=== PATIENT | male | born 1955 | race Caucasian/White ===

== ENCOUNTER 2023-05-27 14:53 | Outpatient (AMB) | payer MEDICARE, SELFPAY ==
--- NOTE | 2023-05-27 15:38 | MHC.OFFWIV ---
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 He fell 2 days ago and now has bruising to the right lower leg Denies pain, ambulating at baseline Patient states he went to the gym today but then was told by family he should have his leg examined so he came here Patient denies use of blood thinners but is currently taking meloxicam daily for arthritis though he says it does not give him any relief He tripped and fell walking into his house, denies syncope, chest pain, shortness of breath, weakness, dizziness Review of Systems Const All systems reviewed & are unremarkable except as noted in HPI and below Physical Exam Vital Signs: Last Vital Signs Temp 99 F 05/27/23 15:43 Pulse 68 05/27/23 15:43 BP 140/72 H 05/27/23 15:43 Pulse Ox 97 05/27/23 15:43 Oxygen Delivery Method Room Air 05/27/23 15:43 General: awake, alert, oriented. Answers questions appropriately. Fully engaged in examination. Skin: warm, dry, intact HEENT: Normocephalic. Hearing intact. Cardiac: External chest normal in appearance. Respiratory: No cough, audible wheezing or stridor. Abdomen: without gross distension. MS: No deformities. Bruising noted to right lower leg from mid tib-fib to ankle anteriorly. Nontender to palpation. Full range of motion. Distal pulses intact. 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 Neurological: Oriented to person, place, time and situation. Thought process intact. Psychiatric: Appropriate mood and affect. Good judgment and insight. Assessment & Plan Assessment & Plan (1) Contusion: Code(s): T14.8XXA - Other injury of unspecified body region, initial encounter Plan Rest, ice, elevate right lower extremity Hold meloxicam for next 1 week Activity as tolerated All questions and concerns were answered, patient agrees with the plan Follow-up with primary care doctor or return to walk-in for any new or worsening symptoms Coding Level of Care Code Est Pt Level 3 (68900) Diagnoses Contusion T14.8XXA
[2023-05-27 15:43] VITALS: BP 140/72; PULSE 68; TEMP 37.2; O2SAT 97
== END 2023-05-27 16:32 | disposition home or self-care (01) ==
PROVIDERS: PCP Internal Medicine; Visit Provider Registered Nurse Emergency
DX: T14.8XXA Other injury of unspecified body region, initial encounter (principal)
CPT/HCPCS: 99213

== ENCOUNTER 2023-06-05 10:43 | Outpatient (AMB) | payer MEDICARE, SELFPAY ==
--- NOTE | 2023-06-05 11:08 | AM.OFFWIN_ITS ---
Intake Vital Signs 06/05/23 11:09 Height 5 ft 9 in Weight 280 lb BMI 41.3 BP 130/90 H Blood Pressure Location Lt brachial Position Sitting Pulse 75 Pulse Source Pulse Oximeter Temp 97.9 F Temp Source Temporal Artery Scan Pulse Oximetry (%) 96 Oxygen Delivery Method Room Air Intake Visit Reasons: EP RT lesion possible infection Intake Note: pt is here today for rt lesion possible infection started 2 days ago Patient Tobacco Use Status: Never used Tobacco Allergies No Known Allergies Allergy (Verified 06/05/23 12:06) Medication List - Last Reconciled 06/05/23 by Jayro Menchaca MD atorvastatin 80 mg PO DAILY carvedilol 25 mg PO BID cephalexin 500 mg PO BID 7 days cholecalciferol (vitamin D3) 50 mcg PO DAILY cyanocobalamin (vitamin B-12) 1,000 mcg PO DAILY hydralazine 50 mg PO TID magnesium 200 mg PO DAILY meloxicam 7.5 mg PO DAILY montelukast 10 mg PO DAILY spironolactone 100 mg PO DAILY tamsulosin 0.4 mg PO DAILY valsartan 320 mg PO DAILY verapamil ER mg PO Do you need a note to return to daycare/school/sports/work: No HPI EP RT lesion possible infection HPI Details 67-year-old male presents to the office for a sick visit. Patient was seen on May 26 for a contusion injury on the right leg. Patient reports that his leg congestion symptoms have worsened. There is a weeping wound in the leg. He is flying to [place] this weekend. No chills or rigors. PFSH Social History Patient Tobacco Use Status: Never used Tobacco Physical Exam Vital Signs: Last Vital Signs Temp 97.9 F 06/05/23 11:09 Pulse 75 06/05/23 11:09 BP 130/90 H 06/05/23 11:09 Pulse Ox 96 06/05/23 11:09 Oxygen Delivery Method Room Air 06/05/23 11:09 BMI result Body Mass Index 41.3 Extrem Other: Right leg: Congested, swollen and mildly tender to touch. Fluctuant swelling in the center of the rash. Office Procedures I&D Drain Details: Fluctuant area was cleaned with Betadine. Most dependent part, area infiltrated with 2% xylocaine. Using an 18 gauge needle the skin was pierced. Most of the aspirate was blood 68416-Motjgbja of Skin Abscess, simple All charges added?: Additional procedure code (CPT) needed Assessment & Plan Assessment & Plan (1) Contusion: Code(s): T14.8XXA - Other injury of unspecified body region, initial encounter Plan: Hematoma was drained. Abx started for empirical coverage for skin infection. Pt was instructed to return for a recheck on Saturday. Orders: Orders AMB Incision & Drainage Today T14.8XXA - Other injury of unspecified body region, initial encounter Jayro Menchaca MD Medications: New cephalexin 500 mg PO BID 7 days 14 caps 0RF L02.91 - Cutaneous abscess, uns pecified Lyndsey Jeffers NP Coding Level of Care Code Est Pt Level 3 (26345) Diagnoses Contusion T14.8XXA CPT Codes I&D Drain - Drain 1: 52756-Zgddoumx of Skin Abscess, simple ([id number])
[2023-06-05 11:09] VITALS: BP 130/90; PULSE 75; TEMP 36.6; O2SAT 96; BMI 41.3
== END 2023-06-05 14:53 | disposition home or self-care (01) ==
PROVIDERS: PCP Internal Medicine; Visit Provider Internal Medicine
DX: S80.11XA Contusion of right lower leg, initial encounter (principal)
CPT/HCPCS: 10060; 99213

== ENCOUNTER 2023-06-07 11:04 | Outpatient (AMB) | payer MEDICARE, SELFPAY ==
--- NOTE | 2023-06-07 11:21 | MHC.OFFWIV ---
Intake Vital Signs 06/07/23 11:23 Weight 280 lb BP 130/90 H Blood Pressure Location Lt brachial Position Sitting Pulse 76 Pulse Source Pulse Oximeter Pulse Oximetry (%) 97 Oxygen Delivery Method Room Air Intake Visit Reasons: EP dressing removal RT leg (lobby) Patient Tobacco Use Status: Never used Tobacco Allergies No Known Allergies Allergy (Verified 06/07/23 11:23) Do you need a note to return to daycare/school/sports/work: No HPI HPI Comments History of Present Illness Details 67 male patient who presents to walk in clinic for dressing change. Pt was seen Wed by Dr. Menchaca for I&D of Abscess right lower leg. Pt currently takes Keflex as prescribed. PFSH Social History Patient Tobacco Use Status: Never used Tobacco Review of Systems Const All systems reviewed & are unremarkable except as noted in HPI and below Physical Exam Vital Signs: Last Vital Signs Pulse 76 06/07/23 11:23 BP 130/90 H 06/07/23 11:23 Pulse Ox 97 06/07/23 11:23 Oxygen Delivery Method Room Air 06/07/23 11:23 Const General: comfortable and no acute distress Orientation/consciousness: patient oriented x3 Skin General skin exam: erythema, eschar and fluctuance Wounds: wounds noted (right lower leg) Neuro General: patient oriented x3 and gait normal Psych Speech and movement: Normal speech and movement present Assessment & Plan Assessment & Plan (1) Dressing change or removal, nonsurgical wound: Code(s): Z48.00 - Encounter for change or removal of nonsurgical wound dressing Plan: - Removed the Old dressing. - Wound was cleaned and new dressings applied (Xeroform, 4x4 sponges, Kerlix wrap and Coban bandage). Coding Level of Care Code Est Pt Level 3 (62172) Diagnoses Dressing change or removal, nonsurgical wound Z48.00 Time Spent (min) 15
[2023-06-07 11:23] VITALS: BP 130/90; PULSE 76; O2SAT 97
== END 2023-06-07 12:47 | disposition home or self-care (01) ==
PROVIDERS: PCP Internal Medicine; Visit Provider Nurse Practitioner Family
DX: Z48.00 Encounter for change or removal of nonsurgical wound dressing (principal)
CPT/HCPCS: 99024

== ENCOUNTER 2024-12-03 10:13 | Outpatient (AMB) | payer MEDICARE, SELFPAY ==
[2024-12-03 10:18] VITALS: BP 112/60; PULSE 66; TEMP 36.6; O2SAT 97; BMI 41.8
--- NOTE | 2024-12-03 10:18 | AM.OFFWIN_ITS ---
Intake Vital Signs 12/03/24 10:18 Height 5 ft 9 in Weight 283 lb BMI 41.8 BP 112/60 Blood Pressure Location Lt brachial Position Sitting Pulse 66 Pulse Source Pulse Oximeter Temp 97.9 F Temp Source Oral Pulse Oximetry (%) 97 Oxygen Delivery Method Room Air Intake Visit Reasons: EP bug bite on back Intake Note: pt presents with irritated lesion on right mid lower back- red, swollen, painful Patient Tobacco Use Status: Never used Tobacco Allergies No Known Allergies Allergy (Verified 12/03/24 10:19) Do you need a note to return to daycare/school/sports/work: No HPI HPI Comments History of Present Illness Details History of Present Illness - The patient is a 69-year-old male pres enting with a skin lesion on the back. - The lesion was first noticed yesterday at the gym and has worsened since then. - The patient reports pain and fatigue b ut denies fever. - There was drainage from the lesion thi s morning. - He thinks that he was bitten by a bug. - The patient has a pending prescription for amoxicillin for dental work, which has not been collected yet. - He denies fever, chills, discharge, bl eeding, joint pain, or other lesions. Physical Exam General: Cooperative, healthy appearing, comfortable, no acute distress and well developed Orientation: Patient oriented x3 Respiratory: Normal respiratory effort and able to speak in complete sentences. Clear to auscultation bilaterally Cardiovascular: Regular rate and rhythm. Normal S1 and S2 Skin: Small open crusted dry single non-tender raised lesion on the lower back on the left with surrounding erythema and no induration. No discharge noted. No fluctuance noted. Patient was informed and verbally consented to the use of an ambient scribe for clinic note documentation during this visit. [facility] Social History Patient Tobacco Use Status: Never used Tobacco Review of Systems Const All systems reviewed & are unremarkable except as noted in HPI and below Physical Exam Vital Signs: Last Vital Signs Temp 97.9 F 12/03/24 10:18 Pulse 66 12/03/24 10:18 BP 112/60 12/03/24 10:18 Pulse Ox 97 12/03/24 10:18 Oxygen Delivery Method Room Air 12/03/24 10:18 BMI result Body Mass Index 41.8 Assessment & Plan Assessment & Plan (1) Bug bite with infection: Code(s): W57.XXXA - Bitten or stung by nonvenomous insect and other nonvenomous arthropods, initial encounter Qualifiers: Encounter type: initial encounter Qualified Code(s): W57.XXXA - Bitten or stung by nonvenomous insect and other nonvenomous arthropods, initial encounter Plan Most likely cellulitis vs abscess after an insect bite plan - Prescribed antibiotic cream and oral antibiotics for infection management. - Recommended Tylenol or Motrin for pain relief. - Advised to monitor the lesion and report any worsening symptoms. - Instructed to observe for any signs of worsening or complications. Medications: New doxycycline hyclate 100 mg PO BID 14 tabs 0RF mupirocin 2% 1 appl topical TID 22 grams 0RF Coding Level of Care Code Est Pt Level 3 (06433) Diagnoses Bug bite with infection, initial encounter W57.XXXA Encounter type: initial encounter
--- OUTSIDE RECORDS SUMMARY | 2024-12-03 12:12 | XMS_ITS | Encounter Summary ---
Author Organization [facility] Address [address] [place] [id number] Phone Care Team Providers Care Machine Container Washer Name Role Phone Unknown, Unknown Primary Care Provider Johnathan Decker MD Unavailable [phone] Reason for Referral * Outpatient Procedure - Closed Specialty Diagnoses / Procedures Referred By Lazaro lopez Referred To Contact Radiology Diagnoses TIA (transient ischemic attack) Procedures US Carotid Duplex Complete (Bilateral) Klaus Peña MD [address] [place] [address], [address] [place] [id number] Phone: tel: fax: [email or web address]:[email or web address] Referral ID Status Reason Start Date Expiration Date Visits Re quested Visits Authorized [id number] Closed 08/22/2023 08/21/2024 1 1 Encounter Details Date Type Department Care Team (Latest Contact Info) Description 08/22/2023 Transcribe Orders Virtual Department [address], [place] [phone] Klaus Peña MD [address] [place] [address], [address] [place] [address] [phone] [email or web address] TIA (transient ischemic attack) (Primary Dx) Social History Tobacco Use Types Packs/Day Years Used Date Smoking Tobacco: Never Assessed Sex and Gender Information Value Date Recorded Sex Assigned at Male 09/03/2023 11:46 AM EDT Legal Sex Male 4:18 PM EDT Gender Identity Male 09/03/2023 11:46 AM EDT Sexual Orientation Straight 09/03/2023 11 :46 AM EDT documented as of this encounter Plan of Treatment Not on file documented as of this encounter Results * US Carotid Duplex Complete (Bilateral) (09/04/2023 3:40 PM EDT) Anatomical Region Laterality Modality Heart, Thoracic Vasculature, Neck Ultrasound 09/09/2023 3:59 PM EDT Impressions 09/09/2023 4:03 PM EDT Atherosclerotic changes bilaterally. No evidence of hemodynamically significant cervical common carotid or proximal ICA stenosis. Narrative 09/09/2023 4:03 PM EDT US CAROTID DUPLEX COMPLETE (BILATERAL) HISTORY: TIA. TECHNIQUE: Ultrasound Carotid Duplex with color flow Doppler and spectral waveform Doppler. Arterial inflow was assessed. COMPARISON: No relevant cervical/carotid imaging available. FINDINGS: Mild atherosclerotic mural thickening affects the carotid bulb bilaterally, minimal effect upon the lumen. Right Common carotid artery: No discernible flow limiting stenosis throughout the cervical carotid artery. Internal carotid artery: There is no evidence of flow-limiting stenosis following standard velocity criteria. Peak systolic over end diastolic velocities within the distal common carotid artery and proximal ICA are 98/17 and 57/16 cm/s. ICA to CCA peak systolic velocity ratio is 0.58. External carotid artery: No flow limiting stenosis. Vertebral artery: Normal velocity, antegrade flow: 39/12 cm/s. Left Common carotid artery: No discernible flow limiting stenosis throughout the cervical carotid artery. Internal carotid artery: No evidence of flow-limiting stenosis by velocity criteria or suggested on color flow imaging. Peak systolic over end diastolic velocities within the distal common carotid artery and proximal ICA are 61/9 and 49/11 cm/s. ICA to CCA peak systolic velocity ratio is 0.80. External carotid artery: No significant stenosis. Vertebral artery: Normal velocity, antegrade flow: 53/13 cm/s. Procedure Note Stewart Lezama MD - 09/09/2023 US CAROTID DUPLEX COMPLETE (BILATERAL) HISTORY: TIA. TECHNIQUE: Ultrasound Carotid Duplex with color flow Doppler and spectralwaveform Doppler. Arterial inflow was assessed. COMPARISON: No relevant cervical/carotid imaging available. FINDINGS: Mild atherosclerotic mural thickening affects the carotid bulbbilaterally, minimal effect upon the lumen. Right Common carotid artery: No discernible flow limiting stenosis throughoutthe cervical carotid artery. Internal carotid artery: There is no evidence of flow-limiting stenosisfollowing standard velocity criteria. Peak systolic over end diastolicvelocities within the distal common carotid artery and proximal ICA are98/17 and 57/16 cm/s. ICA to CCA peak systolic velocity ratio is 0.58. External carotid artery: No flow limiting stenosis. Vertebral artery: Normal velocity, antegrade flow: 39/12 cm/s. Left Common carotid artery: No discernible flow limiting stenosis throughoutthe cervical carotid artery. Internal carotid artery: No evidence of flow-limiting stenosis by velocitycriteria or suggested on color flow imaging. Peak systolic over enddiastolic velocities within the distal common carotid artery and proximalICA are 61/9 and 49/11 cm/s. ICA to CCA peak systolic velocity ratio is0.80. External carotid artery: No significant stenosis. Vertebral artery: Normal velocity, antegrade flow: 53/13 cm/s. IMPRESSION: Atherosclerotic changes bilaterally. No evidence of hemodynamicallysignificant cervical common carotid or proximal ICA stenosis. us Klaus Peña MD CV US NEUROVASCULAR Final Re sult documented in this encounter Visit Diagnoses Diagnosis TIA (transient ischemic attack)- Primary Unspecified transient cerebral ischemia TIA (transient ischemic attack) Unspecified transient cerebral ischemia documented in this encounter Care Teams Machine Container Washer Relationship Specialty Start Date End Date Unknown, Unknown, PCP - General 08/30/23 Johnathan Kim MD Internal Medicine 08/30/23 documented as of this encounter Additional Source Comments The information contained in this document represents components of the legal health record. It is not the complete legal health record.[facility]
--- OUTSIDE RECORDS SUMMARY | 2024-12-03 12:12 | XMS_ITS ---
Author Name [facility] Organization Unknown Care Team Organization Name Specialty Phone Email Start Date End Da te [facility] 11/04/2024 [facility] MAIK [place] Primary Care [email or web address] 02/27/2023 11/04/2023
--- OUTSIDE RECORDS SUMMARY | 2024-12-03 12:12 | XMS_ITS | Encounter Summary ---
Author Organization [facility] Address [address] [place] [address] Care Team Providers Care Nuclear Plant Operator Name Role Phone Johnathan Kim MD Primary Care Provider [phone] Reason for Visit * Reason Onset Date Comments Office notes 11/24/2024 Encounter Details Date Type Department Care Team ([facility] st Contact Info) Description 11/24/2024 Telephone Adult Medicine [facility] [address] [place] [address] Johnathan Kim MD [address] [place] [address] Social History Tobacco Use Types Packs/Day Years Used Date Smoking Tobacco: Former Cigarettes Smokeless Tobacco: Never Alcohol Use Standard Drinks/Week Comments Yes 0 (1 standard drink = 0.6 oz pur e alcohol) Housing Instability Answer Date Recorde d Are you worried that in the next 2 months you may not have stable housing? No 02/02/2024 Food Access & Nutrition Answer Date Rec orded Do you have access to a vari ety of food including fruits and vegetables? Yes 02/02/2024 Access to Healthcare Answer Date Record ed Within the last 3 months, ho w many times did you visit the emergency department for your medical care? 0 02/02/2024 Health Literacy Answer Date Recorded How often do you need to hav e someone help you when you read instructions, pamphlets, or other written material from your doctor or pharmacy? Never 02/02/2024 Caregiver: How often do you need to have someone help you when you read instructions, pamphlets, or other written material from your doctor or pharmacy? Not on file 02/02/2024 Financial Risk Answer Date Recorded How hard is it for you to pa y for the very basics like food, housing, medical care, and air conditioning / heating? Not very hard 02/02/2024 Transportation Answer Date Recorded Has the lack of transportati on kept you from meetings, work, or from getting things needed for daily living? No Has the lack of transportati on kept you from medical appointments or from getting medications? No 02/02/2024 Social Isolation Answer Date Recorded How often do you feel lonely or isolated from th ose around you? Never 02/02/2024 Food Risk Answer Date Recorded Within the past 12 months we worried whether our food would run out before we got money to buy more. Never true 02/02/2024 Within the past 12 months th e food we bought just didn't last and we didn't have money to get more. Never true 02/02/2024 Dependent Care Answer Date Recorded Do you need help finding or paying for care for your loved ones. For example, early childhood aide classroom or elderly care for an older adult? No 02/02/2024 Education Answer Date Recorded Do you think completing more education or training, like finishing a GED, going to college, or learning a trade, would be helpful for you? No 02/02/2024 Employment and Income Answer Date Recor ded During the last four weeks, have you been actively looking for work? No 02/02/2024 Living Situation Answer Date Recorded What is your living situation? 1 04/03/2023 Sex and Gender Information Value Date Recorded Sex Assigned at Not on file Legal Sex Male 7:50 AM EST Gender Identity Not on file Sexual Orientation Not on file documented as of this encounter Progress Notes * Elsi Wooten - 11/24/2024 11:32 AM EDT Charlotte is calling from the [facility] and needs the patients office notes before 09/22/24. Charlotte also needs the patients Medication List. Please advise, best fax is [phone]. documented in this encounter Plan of Treatment Upcoming Encounters Date Type Department Care Team (Late st Contact Info) Description 12/10/2024 2:45 PM EDT Office Visit [facility] Hematology Oncology [address] [place] [phone] Sandy Herrera PA [address] [place] [address] 12/24/2024 9:45 AM EDT Office Visit Adult Medicine [facility] [address] [place] [address] Johnathan Kim MD [address] [place] [address] 01/01/2025 1:30 PM EDT Consult Vascular Surgery - [place] [address] [place] [address] Nirav Norton MD [address] [place] [phone] documented as of this encounter Visit Diagnoses Not on filedocumented in this encounter Additional Health Concerns Assessment Noted Time PHQ-9 Depression Total Score: 0 02/02/20 24 12:58 PM EST documented as of this encounter Care Teams Nuclear Plant Operator Relationship Specialty Start Date End Date Johnathan Kim MD [address] [place] [address] PCP - General 04/03/22 documented as of this encounter
--- OUTSIDE RECORDS SUMMARY | 2024-12-03 12:12 | XMS_ITS | Clinical Summary ---
Author Organization [facility] Address [address] [place] [address] Care Team Providers Care Him Assistant Name Role Phone Johnathan Kim MD Primary Care Provider [phone] Allergies No known active allergies Medications Medication Sig Dispensed Refills Start Date End Date Status atorvastatin (LIPITOR) tablet 80 mg Take 1 tablet (80 mg total) by mouth daily. 0 Active carvedilol (COREG) 25 MG tablet Take by mouth 2 (two) times a day with meals. 0 Active hydrALAZINE (APRESOLINE) 50 MG tablet Take 1 tablet (50 mg total) by mouth 3 (three) times a day. 0 Active montelukast (SINGULAIR) 10 MG tablet Take 1 tablet (10 mg total) by mouth every night at bedtime. 0 Active solifenacin (VESICARE) 10 MG tablet Take 0.5 tablets (5 mg total) by mouth daily. 0 Active spironolactone (ALDACTONE) 100 MG tablet Take 1 tablet (100 mg total) by mouth daily. 0 Active tamsulosin (FLOMAX) 0.4 MG CAPS Take 1 capsule (0.4 mg total) by mouth daily. 0 Active valsartan (DIOVAN) tablet 320 mg Take 1 tablet (320 mg total) by mouth daily. 0 Active verapamil (CALAN-SR) 180 MG CR tablet Take 1 tablet (180 mg total) by mouth every night at bedtime. 0 Active Cyanocobalamin (B-12) 1000 MCG CAPS Take by mouth. 0 Active Cholecalciferol (D3) 50 MCG (2000 UT) TABS Take by mouth daily. 0 Active acetaminophen (TYLENOL) 650 MG CR tablet Take 1 tablet (650 mg total) by mouth 2 (two) times a day. 0 Active Social History Tobacco Use Types Packs/Day Years Used Date Smoking Tobacco: Former Cigarettes 0.5 20 Smokeless Tobacco: Never Comments:Quit Tobacco at [address] 20 years ago Alcohol Use Standard Drinks/Week Comments Yes 0 (1 standard drink = 0.6 oz pure alcohol) 3 drinks daily (vodka, sometimes beer) Sex and Gender Information Value Date Recorded Sex Assigned at Male 11/07/2023 11:04 AM EDT Gender Identity Not on file Sexual Orientation Not on file Job Start Date Occupation Industry Not on file Not on file Not on file Last Filed Vital Signs Vital Sign Reading Time Taken Comments Blood Pressure 164/66 12/12/2023 2:32 PM EDT Pulse 66 12/12/2023 2:32 PM EDT Temperature 36.3 C (97.4 F) 12/12/2023 2:32 PM EDT Respiratory Rate - - Oxygen Saturation 97% 12/12/2023 2:32 PM EDT Inhaled Oxygen Concentration - - Weight 129.7 kg (286 lb) 12/12/2023 2:32 PM EDT Height 175.3 cm (5' 9 ) 11/29/2023 1:56 PM EDT Body Mass Index 42.23 11/29/2023 1:56 PM EDT Plan of Treatment Health Maintenance Due Date Last Done Comments Hepatitis C Screening 1956 Depression Screening 1968 Preventative Health Evaluation 1974 Colon Cancer Screening (Colonoscopy) 2001 Shingrix-Zoster Vaccine (1 o f 2) 2006 RSV Adult > 60+ Yrs or (1 - Risk 60-74 years 1-dose series) 2016 Fall Risk Assessment 2021 COVID-19 Vaccine (2 - 2024-2 6 season) 2024 05/25/2020 Influenza Vaccine (#1) 2024 , 01/30/2022 DTap / Tdap / Td (2 - Td or Tdap) 10/22/2032 10/22/2022 Pneumococcal Vaccine Completed 03/28/2023, 05/04/2017 Hepatitis B Vaccines Aged Out No long er eligible based on patient's age to complete this topic RSV Ped < 20 months Aged Out No longe r eligible based on patient's age to complete this topic Care Teams Him Assistant Relationship Specialty Start Date End Date Johnathan Kim MD [address], [place] [phone] PCP - General Internal Medicine 11/06/23
--- OUTSIDE RECORDS SUMMARY | 2024-12-03 12:12 | XMS_ITS | Clinical Summary ---
Author Organization [facility], Address [address] [place] [address] [place] [address] Phone Care Team Providers Care School Supervisor Name Role Phone Santiago Murphy MD Primary Care Provider + [phone] Allergies Active Allergy Reactions Criticality Noted Date Comments Chlorthalidone 07/11/2020 Medications amLODIPine (NORVASC) 10 MG tablet 06/19/2020 Active atorvastatin (LIPITOR) 80 MG tablet 04/20/2020 Active lisinopril (PRINIVIL,ZESTRI L) 40 MG tablet 05/24/2020 Act chelle metoprolol succinate XL (TOPROL-XL) 200 MG 24 hr tablet 04/20/2020 Act chelle montelukast (SINGULAIR) 10 MG tablet 04/15/2020 Active naproxen (NAPROSYN) 500 MG tablet 06/03/2020 Active spironolactone (ALDACTONE) 100 MG tablet 04/15/2020 Active testosterone cypionate (DEPO-TESTOTERON E) 200 MG/ML injection 04/29/2020 Active torsemide (DEMADEX) 20 MG tablet 05/09/2020 Active verapamil ER (VERELAN) 240 MG 24 hr capsule Take by mouth 1 (one) time each day 06/30/2020 Active verapamil SR (CALAN-SR) 180 MG CR tablet 07/05/2020 Active Active Problems Problem Noted Date Diagnosed Date Hypertension 07/11/2020 Social History Tobacco Use Types Packs/Day Years Used Date Smoking Tobacco: Unknown Sex and Gender Information Value Date Recorded Sex Assigned at Not on file Legal Sex Male 5:23 PM EST Gender Identity Not on file Sexual Orientation Not on file Last Filed Vital Signs Vital Sign Reading Time Taken Comments Blood Pressure 128/50 07/12/2020 10:14 AM EDT Pulse - - Temperature - - Respiratory Rate - - Oxygen Saturation - - Inhaled Oxygen Concentration - - Weight 122 kg (270 lb) 07/12/2020 10:14 AM EDT Height - - Body Mass Index - - Plan of Treatment Health Maintenance Due Date Last Done Comments Colorectal Cancer Screening: Annual FOBT 2005 Colorectal Cancer Screening: Colonoscopy 2005 Colorectal Cancer Screening: Sigmoidoscopy 2005 Pneumococcal Vaccine: 50+ Ye ars (1 of 1 - PCV) 2006 Influenza Vaccine (#1) 2024 Hepatitis B Vaccine Aged Out No longe r eligible based on patient's age to complete this topic Insurance Care Teams School Supervisor Relationship Specialty Start Date End Date Santiago Murphy MD [address] [place] [address] PCP - General Internal Medicine 07/06/20
--- OUTSIDE RECORDS SUMMARY | 2024-12-03 12:12 | XMS_ITS | Clinical Summary ---
Author Organization [facility] Address [address] [place] [address] Phone Care Team Providers Care Dinker Name Role Phone Johnathan Kim MD Primary Care Provider [phone] Allergies No known active allergies Medications acetaminophen (TYLENOL 8 HOUR) 650 mg 8 hr tablet Take 650 mg by mouth 2 times daily. Active solifenacin (VESICARE) 10 mg tablet Take 5 mg by mouth 1 (one) time each day. 06/20/19 24 Active tamsulosin (FLOMAX) 0.4 mg 24 hr capsule Take 1 capsule (0.4 mg total) by mouth daily Active spironolactone (ALDACTONE) 100 mg tablet TAKE 1 TABLET BY MOUTH DAILY 90 tablet 1 04/21/19 25 Active atorvastatin (LIPITOR) 80 mg tablet TAKE 1 TABLET BY MOUTH DAILY 90 tablet 1 04/21/19 25 Active verapamil SR (CALAN-SR) 180 mg CR tablet Take 1 tablet (180 mg total) by mouth 2 (two) times a day. 180 tablet 1 09/24/19 25 Active hydrALAZINE (APRESOLINE) 50 mg tablet Take 1 tablet (50 mg total) by mouth 3 (three) times a day. 270 tablet 1 09/25/19 25 Active montelukast (SINGULAIR) 10 mg tablet TAKE 1 TABLET(10 MG) BY MOUTH AT BEDTIME 90 tablet 1 09/26/19 25 Active valsartan (DIOVAN) 320 mg tablet Take 1 tablet (320 mg total) by mouth 1 (one) time each day. 90 tablet 1 10/06/19 25 Active carvediloL (COREG) 25 mg tablet TAKE 1 TABLET BY MOUTH TWICE DAILY WITH MEALS 180 tablet 3 10/23/19 25 Active cholecalcifero l (VITAMIN D-3) 50 mcg (2,000 unit) tablet TAKE 1 TABLET BY MOUTH DAILY 90 tablet 1 11/19/19 25 Active cyanocobalamin (VITAMIN B-12) 1,000 mcg tablet Take 1 tablet (1,000 mcg total) by mouth 1 (one) time each day. 90 tablet 1 11/19/19 25 Active cholecalcifero l (VITAMIN D-3) 50 mcg (2,000 unit) tablet TAKE 1 TABLET BY MOUTH DAILY 90 tablet 08/19/19 25 025 Discontinued cyanocobalamin (VITAMIN B-12) 1,000 mcg tablet TAKE 1 TABLET BY MOUTH EVERY DAY 90 tablet 08/19/19 25 025 Discontinued(Re order) Active Problems Problem Noted Date Diagnosed Date Class 3 severe obesity due t o excess calories with serious comorbidity and body mass index (BMI) of 40.0 to 44.9 in adult ([facility] V24, [facility] V28) 09/15/2024 Primary hypertension 09/15/2024 Benign prostatic hyperplasia 09/15/2024 Mild intermittent asthma 09/15/2024 Ambulates with cane 09/15/2024 Prediabetes 09/15/2024 Hyperglycemia 06/10/2024 Hyperlipidemia 06/10/2024 Dizziness 06/10/2024 Encounters Date Type Department Care Team Description 11/24/2024 Telephone Adult Medicine [address] [phone] Johnathan Kim MD 09/17/2024 Telephone Adult Medicine [address] [phone] Yulisa Hatfield MA 09/16/2024 8:06 AM EDT - 09/16/2024 11:59 PM EDT Hospital Encounter Radiology Department - [address] [phone] Screening for AAA (abdominal aortic aneurysm) Discharge Disposition: Home or Self Care 09/15/2024 11:30 AM EDT Office Visit Adult Medicine [address] [phone] Johnathan Kim MD Class 3 severe obesity due to excess calories with serious comorbidity and body mass index (BMI) of 40.0 to 44.9 in adult ([facility] V24, [facility] V28) (Primary Dx); Ambulates with cane; Dizziness; Primary hypertension; Mild intermittent asthma, unspecified whether complicated; Benign prostatic hyperplasia, unspecified whether lower urinary tract symptoms present; Prediabetes; Screening for AAA (abdominal aortic aneurysm); Abdominal aortic aneurysm (AAA) without rupture, unspecified part ([facility] V24) from Last 3 Months Immunizations Name Administration Dates Next Due Influenza trivalent, 0.5mL (Fluad) 65yo and olde r 06/10/2024 Surgical History Surgery Date Site/Laterality Comments TOTAL SHOULDER ARTHROPLASTY PROCEDURE:TOTAL SHOULDER REPLACEMENT TOTAL KNEE ARTHROPLASTY PROCEDURE:TOTAL KNEE ARTHROPLASTY ANKLE SURGERY PROCEDURE:ANKLE SURGERY Medical History Medical History Date Comments Hypertension DX:Hypertension Social History Tobacco Use Types Packs/Day Years Used Date Smoking Tobacco: Former Cigarettes Smokeless Tobacco: Never Tobacco Cessation:Counseling Given: Not Answered Alcohol Use Standard Drinks/Week Comments Yes 0 [...] Record ed Within the last 3 months, amy oliveira many times did you visit the emergency [...] your loved ones. For example, early childhood assistant or elderly care for an older adult? [...] on file Sexual Orientation Not on file Obstetrics History Last Filed Vital Signs Vital Sign Reading Time Taken Comments Blood Pressure 130/76 09/15/2024 11:28 AM EDT Pulse 76 09/15/2024 11:28 AM EDT Temperature 36.2 C (97.1 F) 09/15/2024 11:28 AM EDT Respiratory Rate 20 09/15/2024 11:28 AM EDT Oxygen Saturation 96% 06/09/2024 2:48 PM EDT Inhaled Oxygen Concentration - - Weight 129 kg (284 lb) 09/15/2024 11:28 AM EDT Height 172.7 cm (5' 8 ) 09/15/2024 11:28 AM EDT Body Mass Index 43.18 09/15/2024 11:28 AM EDT Plan of Treatment Upcoming Encounters Date Type Department Care Team (Late st Contact Info) Description 12/10/2024 2:45 PM EDT Office Visit [facility] Hematology Oncology [address] [place] [phone] Sandy Herrera PA [address] [place] [address] 12/24/2024 9:45 AM EDT Office Visit Adult Medicine [facility] [place] [address] [place] [address] Johnathan Kim MD [address] [place] [address] 01/01/2025 1:30 PM EDT Consult Vascular Surgery - [place] [address] [place] [phone] Nirav Norton MD [address] [place] [phone] Health Maintenance Due Date Last Done Comments RSV Immunization Adult Patients (1 - Risk 60-74 years 1-dose series) 2016 Zoster Vaccines (2 of 3) 09/30/2016 08/05/2016 Colorectal Cancer Screening: Colonoscopy 02/18/2022 Falls Risk Assessment 02/18/2022 Medicare Annual Wellness Visit 02/18/2022 Depression Screening 03/18/2024 02/02/2024 COVID-19 Vaccine (3 - 2024-2 6 season) 2024 03/29/2021, 05/25/2020 Influenza Vaccine (#1) 2024 , 03/28/2023, 01/30/2022 Social Influencers of Health Screening 02/01/2025 02/02/2024 Hypertension/CHF/CAD Annual BMP Blood Test 06/02/2025 06/02/2024, 10/24/2023 Cholesterol Screening (Lipid Panel) 09/16/2029 09/16/2024, 06/11/2024, 10/24/2023 DTaP,Tdap,and Td Vaccines (2 - Td or Tdap) 10/22/2032 10/22/2022 Pneumococcal Vaccine: 50+ Years Completed 03/28/2023, 05/04/2017 Hepatitis C Screening Completed 06/09/2024 HIB Vaccines Aged Out No longer eligi ble based on patient's age to complete this topic HPV Vaccines Aged Out No longer eligi ble based on patient's age to complete this topic Hepatitis A Vaccines Aged Out No long er eligible based on patient's age to complete this topic Hepatitis B Vaccines Aged Out No long er eligible based on patient's age to complete this topic IPV Vaccines Aged Out No longer eligi ble based on patient's age to complete this topic MMR Vaccines Aged Out No longer eligi ble based on patient's age to complete this topic Meningococcal ACWY Vaccine Aged Out N o longer eligible based on patient's age to complete this topic Meningococcal B Vaccine Aged Out No l onger eligible based on patient's age to complete this topic RSV Immunization Patients Under 20 months Aged Out No longer eligible b ased on patient's age to complete this topic Varicella Vaccines Aged Out No longer eligible based on patient's age to complete this topic Procedures Procedure Name Priority Date/Time Associated Diagnosis Comments HEMOGLOBIN A1C Routine 09/16/2024 8:46 AM EDT Class 3 severe obesity due to excess calories with serious comorbidity and body mass index (BMI) of 40.0 to 44.9 in adult (CMS/HCC V24, CMS/HCC V28) Hyperglycemia Prediabetes LIPID PANEL WITH REFLEX TO DIRECT LDL Routine 09/16/2024 8:46 AM EDT Class 3 severe obesity due to excess calories with serious comorbidity and body mass index (BMI) of 40.0 to 44.9 in adult (CMS/HCC V24, CMS/HCC V28) Hyperlipidemia, unspecified hyperlipidemia type US ABDOMEN AORTIC ANEURYSM SCREENING Routine 09/16/2024 8:35 AM EDT Screening for AAA (abdominal aortic aneurysm) HEPATITIS PANEL, ACUTE WITH REFLEX TO CONFIRMATION Routine 06/09/2024 3:21 PM EDT Thrombocytopenia (CMS/HCC V24) Anemia, unspecified type COMPREHENSIVE METABOLIC PANEL Routine 06/02/2024 10:34 AM EDT Anemia, unspecified from Last 3 Months or Most Recently Relevant to Health Maintenance Results * Lipid panel with reflex to direct LDL (09/16/2024 8:46 AM EDT) Cholesterol 140 0 - 200 mg/dL LAB CHEMISTRY METHOD 09/16/2024 12:48 PM EDT [facility] Triglycerides 130 0 - 150 mg/dL LAB CHEMISTRY METHOD 09/16/2024 12:48 PM EDT [facility] HDL 57 >=40 mg/dL LAB CHEMISTRY METHOD 09/16/2024 12:48 PM EDT [facility] LDL Calculated 57 0 - 100 mg/dL LAB CHEMISTRY METHOD 09/16/2024 12:48 PM EDT [facility] VLDL Cholesterol Andres 26 mg/dL LAB CHEMISTRY METHOD 09/16/2024 12:48 PM EDT [facility] Non HDL Chol. (LDL+VLDL) 83 <145 mg/dL LAB CHEMISTRY METHOD 09/16/2024 12:48 PM EDT [facility] Chol/HDL Ratio 2.5 0.0 - 4.4 LAB CHEMISTRY METHOD 09/16/2024 12:48 PM EDT [facility] Blood Venous blood specimen / Unknown Venipuncture / Unknown 09/16/2024 8:46 AM EDT 09/16/2024 8:46 AM EDT us Johnathan Kim MD LAB BLOOD ORDERABLES Final Result [facility] [address] [place] [address], * Hemoglobin A1c (09/16/2024 8:46 AM EDT) Hemoglobin A1C 5.6 <6.5 % LAB CHEMISTRY METHOD 09/16/2024 12:32 PM EDT [facility] Mean Bld Glu Estim. 114 mg/dL LAB CHEMISTRY METHOD 09/16/2024 12:32 PM EDT [facility] Blood Venous blood specimen / Unknown Venipuncture / Unknown 09/16/2024 8:46 AM EDT 09/16/2024 8:46 AM EDT us Johnathan Kim MD LAB BLOOD ORDERABLES Final Result [facility] [address] [place] [address], [place] [phone] * US Abdomen Aortic Aneurysm Screening (09/16/2024 8:35 AM EDT) Anatomical Region Laterality Modality Abdominal aorta Ultrasound 09/16/2024 10:1 9 AM EDT Impressions 09/16/2024 10:22 AM EDT Limited exam. Aneurysmal dilatation of the proximal aorta measuring 3.2 cm. POS - [id number] -------- FINAL REPORT -------- Dictated By: Fátima Pagan Dictated Date: 09/16/2024 10:19 ET Assigned Physician: Fátima Pagan Reviewed and Electronically Signed By: Fátima Pagan Signed Date: 09/16/2024 10:22 ET Workstation ID: [id number] Transcribed By: Self Edit Transcribed Date: 09/16/2024 10:19 ET Narrative 09/16/2024 10:22 AM EDT EXAM: Abdominal aorta ultrasound, AAA screening HISTORY: AAA screening. History of tobacco use. COMPARISON: None FINDINGS: Exam moderately limited by patient body habitus and prominent bowel gas. Aneurysmal dilatation of the proximal aorta which measures 3.2 cm in maximal sagittal diameter. Remainder of the aorta is nonaneurysmal. Mid aorta measures 2.1 cm. Distal aorta measures 1.5 cm. Common iliac arteries not visualized. Procedure Note Fátima Pagan MD - 09/16/2024 EXAM: Abdominal aorta ultrasound, AAA screening HISTORY: AAA screening. History of tobacco use. COMPARISON: None FINDINGS: Exam moderately limited by patient body habitus and prominent bowel gas. Aneurysmal dilatation of the proximal aorta which measures 3.2 cm inmaximal sagittal diameter. Remainder of the aorta is nonaneurysmal. Midaorta measures 2.1 cm. Distal aorta measures 1.5 cm. Common iliacarteries not visualized. IMPRESSION: Limited exam. Aneurysmal dilatation of the proximal aorta measuring 3.2cm. POS - [id number] -------- FINAL REPORT -------- Dictated By: Fátima Pagan Dictated Date: 09/16/2024 10:19 ET Assigned Physician: Fátima Pagan Reviewed and Electronically Signed By: Fátima Pagan Signed Date: 09/16/2024 10:22 ET Workstation ID: [id number] Transcribed By: Self Edit Transcribed Date: 09/16/2024 10:19 ET us Johnathan Kim MD IMG US PROCEDURES Final Res ult * Hepatitis panel, acute with reflex to confirmation (06/09/2024 3:21 PM EDT) Hepatitis B Surface Ag Negative Negative LAB CHEMISTRY METHOD 06/09/2024 5:53 PM EDT [facility] Hepatitis A Antibody IgM Negative Negative LAB CHEMISTRY METHOD 06/09/2024 5:53 PM EDT [facility] Hep B Core IgM Negative Negative LAB CHEMISTRY METHOD 06/09/2024 5:53 PM EDT [facility] Hepatitis C Antibody Negative Negative LAB CHEMISTRY METHOD 06/09/2024 5:53 PM EDT [facility] Blood Venous blood specimen / Unknown Venipuncture / Unknown 06/09/2024 3:21 PM EDT 06/09/2024 4:36 PM EDT us Sandy WALTON LAB BLOOD ORDERABLES Final Re sult [facility] [address] [place] [address], [place] [phone] * (ABNORMAL) Comprehensive metabolic panel (06/02/2024 10:34 AM EDT) Sodium 134 133 - 145 mmol/L LAB CHEMISTRY METHOD 06/02/2024 3:22 PM [facility] Potassium 5.2 3.5 - 5.5 mmol/L LAB CHEMISTRY METHOD 06/02/2024 3:22 PM [facility] Chloride 102 96 - 110 mmol/L LAB CHEMISTRY METHOD 06/02/2024 3:22 PM [facility] CO2 22 21 - 32 mmol/L LAB CHEMISTRY METHOD 06/02/2024 3:22 PM [facility] Anion Gap 10 3 - 11 LAB CHEMISTRY METHOD 06/02/2024 3:22 PM [facility] Glucose 180(H) 70 - 100 mg/dL LAB CHEMISTRY METHOD 06/02/2024 3:22 PM [facility] BUN 20 5 - 25 mg/dL LAB CHEMISTRY METHOD 06/02/2024 3:22 PM [facility] Creatinine 0.60(L) 0.70 - 1.30 mg/dL LAB CHEMISTRY METHOD 06/02/2024 3:22 PM [facility] eGFR 106 >=60 mL/min/1. 73m2 LAB CHEMISTRY METHOD 06/02/2024 3:22 PM [facility] Comment:Calculation based on the Chronic Kidney Disease Epidemiology Collaboration (CKD-EPI) equation refit without adjustment for race. BUN/Creatinine Ratio 33.3 LAB CHEMISTRY METHOD 06/02/2024 3:22 PM [facility] Calcium 8.9 8.5 - 10.5 mg/dL LAB CHEMISTRY METHOD 06/02/2024 3:22 PM [facility] AST (SGOT) 16 10 - 42 unit/L LAB CHEMISTRY METHOD 06/02/2024 3:22 PM [facility] ALT (SGPT) 38 10 - 60 unit/L LAB CHEMISTRY METHOD 06/02/2024 3:22 PM EDT [facility] Alkaline Phosphatase 48 42 - 121 unit/L LAB CHEMISTRY METHOD 06/02/2024 3:22 PM EDT [facility] Total Protein 7.1 6.0 - 8.0 g/dL LAB CHEMISTRY METHOD 06/02/2024 3:22 PM EDT [facility] Albumin 3.9 3.2 - 5.0 g/dL LAB CHEMISTRY METHOD 06/02/2024 3:22 PM EDT [facility] Total Bilirubin 0.8 0.0 - 1.4 mg/dL LAB CHEMISTRY METHOD 06/02/2024 3:22 PM EDT [facility] Blood Venous blood specimen / Unknown Venipuncture / Unknown 06/02/2024 10:34 AM EDT 06/02/2024 10:34 AM EDT us Sandy WALTON LAB BLOOD ORDERABLES Final Re sult [facility] [address] [place] [address], from Last 3 Months or Most Recently Relevant to Health Maintenance Insurance MEDICARE [facility] Care Teams Dinker Relationship Specialty Start Date End Date Johnathan iKm MD [address] [place] [address] PCP - General 04/03/22
--- OUTSIDE RECORDS SUMMARY | 2024-12-03 12:12 | XMS_ITS | Clinical Summary ---
Author Organization [facility] Address [address] [place] [phone] Phone Care Team Providers Care Marketing Campaign Analyst Name Role Phone Unknown, Unknown Primary Care Provider Johnathan Decker MD Unavailable [phone] Social History Tobacco Use Types Packs/Day Years Used Date Smoking Tobacco: Never Assessed Education Answer Date Recorded Are you interested in more education? Not on loraine e 08/30/2023 Are you concerned about learning? Not on file 08/30/2023 No 08/30/2023 No 08/30/2023 Digital Access Answer Date Recorded No 08/30/2023 No 08/30/2023 Reliable internet access at home? Not on file 08/30/2023 Device with a working camera? Not on file Sex and Gender Information Value Date Recorded Sex Assigned at Male 09/03/2023 11:46 AM EDT Legal Sex Male 4:18 PM EDT Gender Identity Male 09/03/2023 11:46 AM EDT Sexual Orientation Straight 09/03/2023 11 :46 AM EDT Plan of Treatment Not on file Medical Devices Not on file Insurance Robbie [place] [address] [place] [address] [employer]EX SUPPLEMENT MEDICARE PART A & B [employer] MEDEX SUPPLEMENT MEDICARE PART A & B [employer] MEDEX SUPPLEMENT MEDICARE PART A & B [employer] MEDEX SUPPLEMENT MEDICARE PART A & B [employer] MEDEX SUPPLEMENT MEDICARE PART A & B [employer] MEDEX SUPPLEMENT MEDICARE PART A & B [employer]OSS MEDEX SUPPLEMENT [employer] MEDEX SUPPLEMENT [employer] MEDEX SUPPLEMENT [employer] CROSS MEDEX SUPPLEMENT [employer] CROSS MEDEX SUPPLEMENT [employer] MEDEX SUPPLEMENT Care Teams Marketing Campaign Analyst Relationship Specialty Start Date End Date Unknown, Unknown, MD PCP - General 08/30/23 Johnathan Kim MD Internal Medicine 08/30/23 Additional Source Comments The information contained in this document represents components of the legal health record. It is not the complete legal health record.[facility]
== END 2024-12-03 10:59 | disposition home or self-care (01) ==
PROVIDERS: PCP Internal Medicine; Visit Provider Physician Assistant Medical
DX: T63.481A Toxic effect of venom of other arthropod, accidental (unintentional), initial encounter (principal)

== ENCOUNTER → 2024-12-03 10:13 | Outpatient (BNVA) | payer MEDICARE, SELFPAY | PROVIDERS: PCP Internal Medicine; Visit Provider Physician Assistant Medical | DX: S20.469A Insect bite (nonvenomous) of unspecified back wall of thorax, initial encounter (principal); W57.XXXA Bitten or stung by nonvenomous insect and other nonvenomous arthropods, initial encounter; Y93.9 Activity, unspecified | CPT/HCPCS: 99212 ==